=== PATIENT | male | born 1955 | race Caucasian/White ===

== ENCOUNTER 2017-04-17 05:00 | Emergency (ER) | payer BC, OTHER ==
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
[2017-04-17 07:00] LABS: CHLORIDE,CL 101 mmol/L (101-111); SODIUM,NA 137 mmol/L (135-145)
--- NOTE | 2017-04-19 12:41 | EKG ---
04/17/2017 - MILAGROS BEJARANO - [facility] 12-lead EKG shows normal sinus rhythm. No significant ST elevation or ST depression noted on this 12-lead EKG. Nonspecific ST-T wave changes noted on lead V2 and V3. [facility] /[id number]
== END 2017-04-17 07:12 ==
LOC: DL.ED 05:00
DX: I63.9 Cerebral infarction, unspecified (principal); Z79.82 Long term (current) use of aspirin; Z79.899 Other long term (current) drug therapy
CPT/HCPCS: 36415; 70450; 80053; 80305; 81001; 82140; 82150; 82962; 83605; 83690; 83735; 84484; 85025; 85610; 93005; 99285; G0480